=== PATIENT | male | born 2000 | race Caucasian/White ===

== ENCOUNTER 2022-06-11 12:25 | Emergency (ER) | payer BC ==
[~2022-06-11] VITALS: Ht 160 cm; Wt 90.0 kg
[2022-06-11 12:34] VITALS: BP 131/89
[2022-06-11] MEDS ORDERED: ACETAMINOPHEN 325MG TABLET PO ONE (15:45)
[2022-06-11] MEDS ORDERED: AMOXICILLIN 500 MG CAPSULE PO ONE (15:45)
[2022-06-11] MEDS ORDERED: AMOX-494 MT (16:31)
[2022-06-11] MEDS ORDERED: IBUP-2437 MT (16:31)
== END 2022-06-11 16:54 | disposition home or self-care (01) ==
LOC: ER 12:25
DX: B34.9 Viral infection, unspecified (principal); H66.91 Otitis media, unspecified, right ear; Z20.822 Contact with and (suspected) exposure to COVID-19; R03.0 Elevated blood-pressure reading, without diagnosis of hypertension
CPT/HCPCS: 87426; 87804; 99283; C9803